=== PATIENT | male | born 1985 | race Caucasian/White ===

== ENCOUNTER 2021-12-10 21:05 | Emergency (ER) | payer MEDICAID ==
[~2021-12-10] VITALS: Ht 175.3 cm; Wt 100.0 kg
[2021-12-10 22:30] VITALS: BP 108/71
[2021-12-10] MEDS ORDERED: KETOROLAC 60MG/2ML VIAL IM ONE (22:30)
[2021-12-11] MEDS ORDERED: IBUP-2030 MT (00:21)
[2021-12-11] MEDS ORDERED: GABA-532 MT (00:21)
== END 2021-12-11 00:39 | disposition home or self-care (01) ==
LOC: ER 21:05
DX: M54.40 Lumbago with sciatica, unspecified side (principal)
CPT/HCPCS: 96372; 99283; J1885